=== PATIENT | male | born 1965 | race Caucasian/White ===

== ENCOUNTER → 2021-04-20 | Outpatient (CLI) | payer BC ==
[~2021-04-20] MED LIST: SODIUM CHLORIDE 0.9% 50 ML IVPB ONE; SODIUM CHLORIDE 0.9% 500 ML 500 ML in EMPTY BAG 1 BAG IV PRN; SOTROVIMAB (EUA) 500 MG in SODIUM CHLORIDE 0.9% 100 ML IVPB ONE
[2021-04-20 11:55] VITALS: TEMP 98
[2021-04-20 12:19] VITALS: RESP 16
[2021-04-20 12:42] VITALS: BP 150/92; PULSE 90
== END ==
LOC: PROCWHC3 11:29
PROVIDERS: ATTEND Radiology Diagnostic Radiology
DX: U07.1 COVID-19 (principal); E66.9 Obesity, unspecified; Z68.28 Body mass index [BMI] 28.0-28.9, adult
CPT/HCPCS: 96360; Q0247; M0247